=== PATIENT | male | born 1975 | race Caucasian/White ===

== ENCOUNTER → 2017-12-02 14:17 | Outpatient (CLI) | payer OTHER, SELFPAY ==
[2017-12-02 14:40] LABS: Absolute Lymphocyte Count 2.15 X10^3/ul (0.83-4.51); Absolute Neutrophil Count 5.2 X10^3/uL (2.0-7.7); Basophil# 0.03 X10^3/uL; Basophil% 0.4 % (0-1); Eosinophil# 0.11 X10^3/uL; Eosinophils% 1.4 % (0-5); Hematocrit 47.2 % (40-54); Hemoglobin 16.8 g/dl (13.0-16.5); Lymphocyte # 2.15 X10^3/ul (4.0); Lymphocyte % 26.9 % (19-41); Mean Corp Hgb Conc 35.6 g/gl (32-36); Mean Corpuscular Volume 89.9 fL (80-94); Mean Platelet Vol. 10.2 fl (6.2-12.0); Monocyte# 0.45 X10^3/uL; Monocyte% 5.6 % (0-10); Neutrophil # 5.21 X10^3/uL (2.7-7.7); Neutrophil % 65.3 % (47-70); Platelet Count 229 K/mm3 (150-450); RBC Distribution Width CV 13.1 % (11.6-14.6); RBC Distribution Width SD 42.7 fl (35.1-43.9); Red Blood Count 5.25 M/mm3 (4.6-6.2)
[2017-12-02 14:42] LABS: POSITIVE COUNT NO; POSITIVE DIFFERENTIAL NO; POSITIVE MORPHOLOGY NO
[2017-12-02 15:00] VITALS: BP 135/92; PULSE 100; RESP 16; TEMP 36.4; O2SAT 94
[2017-12-02 15:05] LABS: Ferritin 44 ng/mL (26-388)
== END ==
PROVIDERS: Visit Provider Internal Medicine Gastroenterology
DX: E83.119 Hemochromatosis, unspecified (principal)
CPT/HCPCS: 82728; 85025; 99195; A4216

== ENCOUNTER → 2018-01-06 14:19 | Outpatient (CLI) | payer OTHER, SELFPAY ==
[2018-01-06 14:30] VITALS: BP 151/85; PULSE 79; RESP 18; TEMP 36.8; O2SAT 94; BMI 37.5
[2018-01-06 14:49] LABS: Hematocrit 46.3 % (40-54); Hemoglobin 16.2 g/dl (13.0-16.5); Mean Corpuscular Hgb 31.9 pg (27.0-32.0); Mean Corpuscular Volume 91.1 fL (80-94); Mean Platelet Vol. 10.6 fl (6.2-12.0); Platelet Count 236 K/mm3 (150-450); RBC Distribution Width CV 12.9 % (11.6-14.6); RBC Distribution Width SD 42.9 fl (35.1-43.9); Red Blood Count 5.08 M/mm3 (4.6-6.2); Scan Indicated on CBC? Y/N NO; White Blood Count 7.3 K/mm3 (4.4-11.0)
[2018-01-06 15:14] LABS: Ferritin 34 ng/mL (26-388)
== END ==
PROVIDERS: Visit Provider Internal Medicine Gastroenterology
DX: E83.119 Hemochromatosis, unspecified (principal)
CPT/HCPCS: 82728; 85027; 99195; A4216

== ENCOUNTER → 2018-02-03 14:04 | Outpatient (CLI) | payer OTHER, SELFPAY ==
[2018-02-03 14:09] VITALS: BP 137/73; PULSE 112; RESP 14; TEMP 36.8; O2SAT 96; BMI 36.8
[2018-02-03 14:43] LABS: Hematocrit 46.7 % (40-54); Hemoglobin 16.6 g/dl (13.0-16.5); Mean Corp Hgb Conc 35.5 g/gl (32-36); Mean Corpuscular Hgb 31.9 pg (27.0-32.0); Mean Corpuscular Volume 89.8 fL (80-94); Mean Platelet Vol. 10.7 fl (6.2-12.0); Platelet Count 262 K/mm3 (150-450); RBC Distribution Width CV 12.6 % (11.6-14.6); RBC Distribution Width SD 40.9 fl (35.1-43.9)
[2018-02-03 15:30] LABS: Ferritin 35 ng/mL (26-388)
[2018-02-03 15:50] LABS: Scan Indicated on CBC? Y/N NO
== END ==
PROVIDERS: Visit Provider Internal Medicine Gastroenterology
DX: E83.119 Hemochromatosis, unspecified (principal)
CPT/HCPCS: 82728; 85027; 99195

== ENCOUNTER → 2018-03-03 14:00 | Outpatient (CLI) | payer OTHER, SELFPAY ==
[2018-03-03 14:05] VITALS: BP 136/84; PULSE 64; RESP 18; O2SAT 96
[2018-03-03 14:39] VITALS: BP 132/81; PULSE 100; RESP 16
[2018-03-03 14:40] LABS: Absolute Lymphocyte Count 1.96 X10^3/ul (0.83-4.51); Basophil# 0.03 X10^3/uL; Basophil% 0.4 % (0-1); Eosinophil# 0.09 X10^3/uL; Eosinophils% 1.2 % (0-5); Hematocrit 45.8 % (40-54); Hemoglobin 16.1 g/dl (13.0-16.5); Lymphocyte # 1.96 X10^3/ul (4.0); Mean Corp Hgb Conc 35.2 g/gl (32-36); Mean Corpuscular Hgb 31.2 pg (27.0-32.0); Mean Corpuscular Volume 88.8 fL (80-94); Mean Platelet Vol. 10.6 fl (6.2-12.0); Monocyte# 0.44 X10^3/uL; Monocyte% 5.8 % (0-10); Neutrophil # 5.01 X10^3/uL (2.7-7.7); Neutrophil % 66.5 % (47-70); Platelet Count 247 K/mm3 (150-450); RBC Distribution Width CV 12.5 % (11.6-14.6); RBC Distribution Width SD 40.2 fl (35.1-43.9); Red Blood Count 5.16 M/mm3 (4.6-6.2); White Blood Count 7.5 K/mm3 (4.4-11.0)
[2018-03-03 14:43] LABS: POSITIVE COUNT NO; POSITIVE DIFFERENTIAL NO; POSITIVE MORPHOLOGY NO
[2018-03-03 15:12] LABS: Ferritin 14 ng/mL (26-388)
== END ==
PROVIDERS: Visit Provider Internal Medicine Gastroenterology
DX: E83.119 Hemochromatosis, unspecified (principal)
CPT/HCPCS: 82728; 85025; 99195

== ENCOUNTER → 2018-03-31 14:10 | Outpatient (CLI) | payer OTHER, SELFPAY ==
[2018-03-31 14:15] VITALS: BP 143/79; PULSE 108; RESP 16; TEMP 36.7; BMI 36.5
[2018-03-31 14:49] LABS: Hematocrit 45.4 % (40-54); Hemoglobin 15.9 g/dl (13.0-16.5); Mean Corpuscular Hgb 30.6 pg (27.0-32.0); Mean Corpuscular Volume 87.3 fL (80-94); Mean Platelet Vol. 10.6 fl (6.2-12.0); Platelet Count 259 K/mm3 (150-450); RBC Distribution Width CV 12.6 % (11.6-14.6); RBC Distribution Width SD 40.4 fl (35.1-43.9); Scan Indicated on CBC? Y/N NO; White Blood Count 7.7 K/mm3 (4.4-11.0)
[2018-03-31 15:07] LABS: Ferritin 12 ng/mL (26-388)
== END ==
PROVIDERS: Visit Provider Internal Medicine Gastroenterology
DX: E83.119 Hemochromatosis, unspecified (principal)
CPT/HCPCS: 82728; 85027; 99195

== ENCOUNTER → 2018-05-02 14:11 | Outpatient (CLI) | payer OTHER, SELFPAY ==
[2018-05-02 14:42] VITALS: BP 125/75; PULSE 90; RESP 16; TEMP 36.7; BMI 36.5
[2018-05-02 14:49] VITALS: BP 133/90; PULSE 97; RESP 16
[2018-05-02 15:09] LABS: Absolute Lymphocyte Count 2.06 X10^3/ul (0.83-4.51); Absolute Neutrophil Count 4.6 X10^3/uL (2.0-7.7); Basophil# 0.02 X10^3/uL; Basophil% 0.3 % (0-1); Eosinophil# 0.07 X10^3/uL; Hematocrit 43.8 % (40-54); Hemoglobin 14.9 g/dl (13.0-16.5); Lymphocyte # 2.06 X10^3/ul (4.0); Lymphocyte % 28.3 % (19-41); Mean Corpuscular Hgb 29.6 pg (27.0-32.0); Mean Corpuscular Volume 87.1 fL (80-94); Mean Platelet Vol. 10.5 fl (6.2-12.0); Monocyte# 0.49 X10^3/uL; Monocyte% 6.7 % (0-10); Neutrophil # 4.64 X10^3/uL (2.7-7.7); Neutrophil % 63.7 % (47-70); Platelet Count 245 K/mm3 (150-450); RBC Distribution Width SD 41.4 fl (35.1-43.9); Red Blood Count 5.03 M/mm3 (4.6-6.2); White Blood Count 7.3 K/mm3 (4.4-11.0)
[2018-05-02 15:14] LABS: POSITIVE COUNT NO; POSITIVE DIFFERENTIAL NO; POSITIVE MORPHOLOGY NO
[2018-05-02 15:19] LABS: Ferritin 9 ng/mL (26-388)
== END ==
PROVIDERS: Visit Provider Internal Medicine Gastroenterology
DX: E83.119 Hemochromatosis, unspecified (principal)
CPT/HCPCS: 82728; 85025; 99195

== ENCOUNTER → 2018-06-02 14:11 | Outpatient (CLI) | payer OTHER, SELFPAY ==
[2018-06-02 14:16] VITALS: BP 128/85; PULSE 94; RESP 16; TEMP 36.6; O2SAT 98; BMI 36.5
[2018-06-02 14:35] LABS: Hematocrit 42.7 % (40-54); Mean Corp Hgb Conc 35.1 g/gl (32-36); Mean Corpuscular Hgb 29.9 pg (27.0-32.0); Mean Corpuscular Volume 85.2 fL (80-94); Mean Platelet Vol. 10.5 fl (6.2-12.0); Platelet Count 242 K/mm3 (150-450); RBC Distribution Width CV 13.6 % (11.6-14.6); RBC Distribution Width SD 41.9 fl (35.1-43.9); Red Blood Count 5.01 M/mm3 (4.6-6.2); White Blood Count 7.1 K/mm3 (4.4-11.0)
[2018-06-02 14:36] LABS: Scan Indicated on CBC? Y/N NO
[2018-06-02 14:50] LABS: Ferritin 11 ng/mL (26-388)
== END ==
PROVIDERS: Visit Provider Internal Medicine Gastroenterology
DX: E83.119 Hemochromatosis, unspecified (principal)
CPT/HCPCS: 82728; 85027; 99195; A4216

== ENCOUNTER → 2019-01-29 14:46 | Outpatient (CLI) | payer OTHER, SELFPAY ==
[2018-06-02 14:16] VITALS: BMI 36.5
[2019-01-29 15:35] VITALS: BP 146/89; PULSE 102; RESP 16; TEMP 36.5; O2SAT 95
[2019-01-29 15:37] LABS: Hematocrit 46.5 % (40-54); Hemoglobin 16.8 g/dl (13.0-16.5); Mean Corp Hgb Conc 36.1 g/gl (32-36); Mean Corpuscular Hgb 31.7 pg (27.0-32.0); Mean Corpuscular Volume 87.7 fL (80-94); Mean Platelet Vol. 10.8 fl (6.2-12.0); Platelet Count 246 K/mm3 (150-450); RBC Distribution Width CV 12.7 % (11.6-14.6); RBC Distribution Width SD 40.5 fl (35.1-43.9); White Blood Count 7.6 K/mm3 (4.4-11.0)
[2019-01-29 15:43] LABS: Scan Indicated on CBC? Y/N NO
[2019-01-29 15:46] LABS: Ferritin 63 ng/mL (26-388)
[2019-01-29 22:57] LABS: Xtra Tube EP Lab EXTRA TUBE
== END ==
PROVIDERS: Referring Provider Internal Medicine Gastroenterology; Visit Provider Internal Medicine Gastroenterology
DX: E83.119 Hemochromatosis, unspecified (principal)
CPT/HCPCS: 82728; 85027; 99195; A4216

== ENCOUNTER → 2019-02-26 | Outpatient (CLI) | payer OTHER, SELFPAY ==
[2019-02-26 15:12] VITALS: BP 140/95; PULSE 101; RESP 18; TEMP 36.1; O2SAT 100
[2019-02-26 15:34] VITALS: BP 122/79; PULSE 99
[2019-02-26 16:06] LABS: Hematocrit 45.9 % (40-54); Hemoglobin 16.4 g/dl (13.0-16.5); Mean Corp Hgb Conc 35.7 g/gl (32-36); Mean Corpuscular Hgb 32.1 pg (27.0-32.0); Mean Corpuscular Volume 89.8 fL (80-94); Mean Platelet Vol. 10.4 fl (6.2-12.0); Platelet Count 232 K/mm3 (150-450); RBC Distribution Width CV 12.8 % (11.6-14.6); RBC Distribution Width SD 41.8 fl (35.1-43.9); Red Blood Count 5.11 M/mm3 (4.6-6.2); White Blood Count 8.3 K/mm3 (4.4-11.0)
[2019-02-26 16:07] LABS: Scan Indicated on CBC? Y/N NO
[2019-02-26 16:08] LABS: Ferritin 40 ng/mL (26-388)
== END | disposition home or self-care (01) ==
LOC: MEDOUTP 15:07
PROVIDERS: Referring Provider Internal Medicine Gastroenterology; Visit Provider Internal Medicine Gastroenterology
DX: E83.119 Hemochromatosis, unspecified (principal)
CPT/HCPCS: 82728; 85027; 99195

== ENCOUNTER → 2019-03-30 | Outpatient (CLI) | payer OTHER, SELFPAY ==
[2019-03-30 15:20] VITALS: BP 123/84; PULSE 84; RESP 16; TEMP 36.6; O2SAT 94; BMI 37.2
[2019-03-30 15:55] LABS: Hemoglobin 17.3 g/dl (13.0-16.5); Mean Corpuscular Hgb 31.9 pg (27.0-32.0); Mean Corpuscular Volume 88.4 fL (80-94); Mean Platelet Vol. 10.8 fl (6.2-12.0); Platelet Count 257 K/mm3 (150-450); RBC Distribution Width CV 12.7 % (11.6-14.6); RBC Distribution Width SD 41.3 fl (35.1-43.9); Red Blood Count 5.43 M/mm3 (4.6-6.2); White Blood Count 8.3 K/mm3 (4.4-11.0)
[2019-03-30 15:56] LABS: Scan Indicated on CBC? Y/N NO
[2019-03-30 16:14] LABS: Ferritin 32 ng/mL (26-388)
== END | disposition home or self-care (01) ==
LOC: MEDOUTP 14:59
PROVIDERS: Referring Provider Internal Medicine Gastroenterology; Visit Provider Internal Medicine Gastroenterology
DX: E83.119 Hemochromatosis, unspecified (principal)
CPT/HCPCS: 82728; 85027; 99195

== ENCOUNTER → 2019-05-04 14:58 | Outpatient (CLI) | payer OTHER, SELFPAY ==
[2019-03-30 15:20] VITALS: BMI 37.2
[2019-05-04 15:04] VITALS: BP 125/68; PULSE 92; RESP 18; TEMP 36.4; O2SAT 94; BMI 37.2
[2019-05-04 15:18] LABS: Absolute Lymphocyte Count 2.18 X10^3/uL (0.83-4.51); Absolute Neutrophil Count 5.2 X10^3/uL (2.0-7.7); Basophil# 0.06 X10^3/uL; Basophil% 0.7 % (0-1); Eosinophils% 1.2 % (0-5); Hematocrit 45.7 % (40-54); Hemoglobin 16.3 g/dL (13.0-16.5); Lymphocyte # 2.18 X10^3/ul (4.0); Mean Corp Hgb Conc 35.7 g/dL (32-36); Mean Corpuscular Hgb 32.1 pg (27.0-32.0); Mean Platelet Vol. 10.3 fl (6.2-12.0); Monocyte# 0.53 X10^3/uL; Monocyte% 6.6 % (0-10); NRBC Flagged by Analyzer 0 % (0-5); Neutrophil # 5.18 X10^3/uL (2.7-7.7); Neutrophil % 64.1 % (47-70); Platelet Count 263 K/mm3 (150-450); RBC Distribution Width SD 39.8 fl (35.1-43.9); Red Blood Count 5.08 M/mm3 (4.6-6.2); White Blood Count 8.1 K/mm3 (4.4-11.0)
[2019-05-04 15:38] LABS: Ferritin 24 ng/mL (26-388)
== END ==
PROVIDERS: Referring Provider Internal Medicine Gastroenterology; Visit Provider Internal Medicine Gastroenterology
DX: E83.119 Hemochromatosis, unspecified (principal)
CPT/HCPCS: 82728; 85025; 99195; A4216

== ENCOUNTER → 2020-07-02 16:47 | Outpatient (CLI) | payer OTHER, SELFPAY ==
[2019-05-04 15:04] VITALS: BMI 37.2
[2020-07-02 18:08] LABS: Hematocrit 47.8 % (40-54); Hemoglobin 16.8 g/dL (13.0-16.5); Mean Corp Hgb Conc 35.1 g/dL (32-36); Mean Corpuscular Hgb 32.3 pg (27.0-32.0); Mean Corpuscular Volume 91.9 fL (80-94); Mean Platelet Vol. 10.6 fl (6.2-12.0); Platelet Count 263 K/mm3 (150-450); RBC Distribution Width CV 12.3 % (11.6-14.6); RBC Distribution Width SD 41.7 fl (35.1-43.9); White Blood Count 8.1 K/mm3 (4.4-11.0)
[2020-07-02 18:51] LABS: ALB/GLOB Ratio 1.2 RATIO (0.9-2.4); AST(SGOT) 55 U/L (15-37); Alanine Aminotransfer ALT/SGPT 87 U/L (16-61); Albumin, Serum 4.2 g/dL (3.2-5.0); Alkaline Phosphatase 61 U/L (45-117); Anion Gap 8 (5-15); BUN 18 mg/dL (7-18); BUN/Creat Ratio 16.2 RATIO (10-20); Calcium,Total 9.3 mg/dL (8.5-10.1); Chloride 107 mmol/L (98-107); Creatinine, Serum 1.11 mg/dL (0.70-1.30); EST Glomerular Filtration Rate 77 mL/min (>60); Est Glom Filt Rate - Afr Amer 93 mL/min (>60); Ferritin 333 ng/mL (26-388); Globulin 3.4 g/dL (2.2-4.2); Glucose 109 mg/dL (74-106); Iron 131 ug/dL (65-175); Iron Binding Capacity,Total 242 ug/dL (250-450); PERCENT IRON SATURATION 54.1 % (15.0-55.0); Protein, Total 7.6 g/dL (6.4-8.2); Sodium Level 141 mmol/L (136-145)
== END ==
PROVIDERS: Referring Provider Internal Medicine Gastroenterology; Visit Provider Internal Medicine Gastroenterology
DX: K75.9 Inflammatory liver disease, unspecified (principal)
CPT/HCPCS: 36415; 80053; 82728; 83540; 83550; 85027

== ENCOUNTER → 2020-08-08 14:25 | Outpatient (CLI) | payer OTHER, SELFPAY ==
[2019-05-04 15:04] VITALS: BMI 37.2
[2020-08-08 14:30] VITALS: BP 139/86; PULSE 97; RESP 18; TEMP 36.3; O2SAT 95; BMI 37.2
[2020-08-08 14:59] VITALS: BP 134/84; PULSE 99; RESP 18; TEMP 36.2; O2SAT 96
== END ==
PROVIDERS: Referring Provider Internal Medicine Gastroenterology; Visit Provider Internal Medicine Gastroenterology
DX: E83.119 Hemochromatosis, unspecified (principal)
CPT/HCPCS: 99195; A4216

== ENCOUNTER → 2020-08-22 14:36 | Outpatient (CLI) | payer OTHER, SELFPAY ==
[2019-05-04 15:04] VITALS: BMI 37.2
[2020-08-08 14:30] VITALS: BMI 37.2
[2020-08-22 14:30] VITALS: BP 133/90; PULSE 100; RESP 16; TEMP 37.2; O2SAT 95; BMI 37.2
[2020-08-22 15:00] VITALS: BP 133/90; PULSE 100; RESP 16; TEMP 37.2; O2SAT 95
== END ==
PROVIDERS: Referring Provider Internal Medicine Gastroenterology; Visit Provider Internal Medicine Gastroenterology
DX: E83.119 Hemochromatosis, unspecified (principal)
CPT/HCPCS: 99195

== ENCOUNTER → 2020-09-16 15:33 | Outpatient (CLI) | payer OTHER, SELFPAY ==
[2020-08-08 14:30] VITALS: BMI 37.2
[2020-08-22 14:30] VITALS: BMI 37.2
[2020-09-16 16:36] VITALS: BP 122/81; PULSE 98; RESP 18; TEMP 35.9; O2SAT 95; BMI 37.2
[2020-09-16 16:38] VITALS: BP 122/81
== END ==
PROVIDERS: Referring Provider Internal Medicine Gastroenterology; Visit Provider Internal Medicine Gastroenterology
DX: E83.119 Hemochromatosis, unspecified (principal)
CPT/HCPCS: 99195

== ENCOUNTER → 2020-11-07 14:38 | Outpatient (CLI) | payer OTHER, SELFPAY ==
[2020-09-16 16:36] VITALS: BMI 37.2
[2020-11-07 14:50] VITALS: BP 133/91; PULSE 109; RESP 16; TEMP 36.1; O2SAT 95; BMI 38.0
== END ==
PROVIDERS: Referring Provider Internal Medicine Gastroenterology; Visit Provider Internal Medicine Gastroenterology
DX: E83.119 Hemochromatosis, unspecified (principal)
CPT/HCPCS: 99195

== ENCOUNTER 2020-12-19 14:57 | Outpatient (CLI) | payer OTHER, SELFPAY ==
[2020-11-07 14:50] VITALS: BMI 38.0
[2020-12-19 15:03] VITALS: BP 149/89; PULSE 105; RESP 16; TEMP 36.2; O2SAT 94; BMI 37.2
[2020-12-19 15:21] VITALS: BP 131/89; PULSE 108; RESP 16; TEMP 36.3; O2SAT 94
== END 2020-12-19 18:00 | disposition home or self-care (01) ==
LOC: MEDOUTP 14:58
PROVIDERS: Referring Provider Internal Medicine Gastroenterology; Visit Provider Internal Medicine Gastroenterology
DX: E83.119 Hemochromatosis, unspecified (principal)
CPT/HCPCS: 99195

== ENCOUNTER 2020-12-29 16:44 | Outpatient (RCR) | payer OTHER, SELFPAY ==
[2020-12-29 17:43] LABS: Hematocrit 45.4 % (40-54); Hemoglobin 16.4 g/dL (13.0-16.5); Mean Corp Hgb Conc 36.1 g/dL (32-36); Mean Corpuscular Hgb 32.9 pg (27.0-32.0); Mean Platelet Vol. 10.5 fl (6.2-12.0); Platelet Count 279 K/mm3 (150-450); RBC Distribution Width CV 12.9 % (11.6-14.6); Red Blood Count 4.99 M/mm3 (4.6-6.2)
[2020-12-29 18:06] LABS: Ferritin 80 ng/mL (26-388); Iron 200 ug/dL (65-175)
== END 2020-12-29 18:00 | disposition home or self-care (01) ==
LOC: MTLAB 16:44
PROVIDERS: Referring Provider Internal Medicine Gastroenterology; Visit Provider Internal Medicine Gastroenterology
DX: E83.119 Hemochromatosis, unspecified (principal)
CPT/HCPCS: 36415; 82728; 83540; 85027

== ENCOUNTER → 2021-01-16 07:40 | Outpatient (CLI) | payer OTHER, SELFPAY ==
[2020-11-07 14:50] VITALS: BMI 38.0
[2020-12-19 15:03] VITALS: BMI 37.2
--- NOTE | 2021-01-16 07:48 | US_ITS ---
STUDY: ABDOMINAL ULTRASOUND - RIGHT UPPER QUADRANT REASON FOR VISIT: Male, 45 years old FATTY LIVER -- hemochromatosis TECHNIQUE: Ultrasound evaluation of the right upper quadrant was performed with real-time and static curtis-scale imaging. TECHNICAL QUALITY: Adequate. COMPARISON: None. FINDINGS: Liver: The liver measures 17.6 cm. There is increased echogenicity consistent with fatty infiltration. The bile ducts are within normal limits. There is hepatic color flow. The direction of portal flow is hepatopetal. There is no demonstrated mass lesion. Gallbladder: Normal distended gallbladder. The gallbladder wall measures 2.6 mm. There is a negative sonographic Aldridge''s sign. There is no pericholecystic fluid. There are no gallstones. Common Bile Duct (C.B.D.): The common bile duct measures 3.8 mm. Pancreas: Normal size of the head, body and tail of the pancreas. There is increased echogenicity of the pancreas. There is no demonstrated pancreatic mass or cyst. Right Kidney: Normal size of the right kidney. The right kidney measures 11.6 cm x 7 cm x 6.9 cm. Normal renal cortex. The right cortex measures 2.7 cm. There is no demonstrated renal mass or cyst. There is no right hydronephrosis. IMPRESSION: Increased hepatic echotexture suggestive of fatty infiltration of the liver. Electronically Signed: Pako Fox MD at 13:01 EDT , Service support , STUDY: ABDOMINAL ULTRASOUND - ELASTOGRAPHY REASON FOR VISIT: Male, 45 years old. Hemochromatosis. Fatty infiltration of the liver. TECHNIQUE: Liver stiffness measurements were obtained on a [employer] 85 ultrasound machine using a CA 1-7 probe following the SRU guidelines. 3 measurements were obtained using a 2-D-SWE method. The IQR/M was 17% suggesting a quality data set. TECHNICAL QUALITY: Adequate. COMPARISON: None. FINDINGS: Liver: Fatty infiltration of the liver. Median liver stiffness measured 7.9 kPa. US/Abdomen Limited IMPRESSION: Liver stiffness measures 7.9 kPa compatible with F2 -- F 3 Metavir score. Electronically Signed: Pako Fox MD at 13:03 EDT , Service support ,
[2021-01-16 09:16] VITALS: BP 136/93; PULSE 78; RESP 16; TEMP 35.7; O2SAT 97; BMI 38.0
== END ==
PROVIDERS: Referring Provider Internal Medicine Gastroenterology; Visit Provider Internal Medicine Gastroenterology
DX: K76.0 Fatty (change of) liver, not elsewhere classified (principal); E83.119 Hemochromatosis, unspecified
CPT/HCPCS: 76705; 76981; 99195

== ENCOUNTER → 2021-02-20 14:39 | Outpatient (CLI) | payer OTHER, SELFPAY ==
[2021-01-16 09:16] VITALS: BMI 38.0
[2021-02-20 14:52] VITALS: BP 128/79; PULSE 101; RESP 16; TEMP 35.9; O2SAT 93; BMI 36.5
[2021-02-20 15:19] VITALS: BP 124/71; PULSE 104; RESP 16; TEMP 35.7; O2SAT 94
== END ==
PROVIDERS: PCP Family Medicine; Referring Provider Internal Medicine Gastroenterology; Visit Provider Internal Medicine Gastroenterology
DX: E83.119 Hemochromatosis, unspecified (principal)
CPT/HCPCS: 99195

== ENCOUNTER → 2021-03-20 14:45 | Outpatient (CLI) | payer OTHER, SELFPAY ==
[2021-01-16 09:16] VITALS: BMI 38.0
[2021-02-20 14:52] VITALS: BMI 36.5
[2021-03-20 14:56] VITALS: BP 137/81; PULSE 113; RESP 16; TEMP 36.1; O2SAT 95; BMI 37.2
[2021-03-20 15:05] VITALS: BP 142/80; PULSE 117; RESP 16; TEMP 36.5; O2SAT 95
== END ==
PROVIDERS: PCP Family Medicine; Referring Provider Internal Medicine Gastroenterology; Visit Provider Internal Medicine Gastroenterology
DX: E83.119 Hemochromatosis, unspecified (principal)
CPT/HCPCS: 99195

== ENCOUNTER → 2021-04-28 15:02 | Outpatient (CLI) | payer OTHER, SELFPAY ==
[2021-02-20 14:52] VITALS: BMI 36.5
[2021-03-20 14:56] VITALS: BMI 37.2
[2021-04-28 15:08] VITALS: BP 131/76; PULSE 101; RESP 16; TEMP 36.3; O2SAT 94; BMI 36.5
[2021-04-28 15:36] VITALS: BP 132/83; PULSE 105; RESP 16; TEMP 36.5
== END ==
PROVIDERS: PCP Family Medicine; Referring Provider Internal Medicine Gastroenterology; Visit Provider Internal Medicine Gastroenterology
DX: E83.119 Hemochromatosis, unspecified (principal)
CPT/HCPCS: 99195

== ENCOUNTER → 2021-06-05 14:43 | Outpatient (CLI) | payer OTHER, SELFPAY ==
[2021-03-20 14:56] VITALS: BMI 37.2
[2021-06-05 14:57] VITALS: BP 133/80; PULSE 99; RESP 16; TEMP 36.6; O2SAT 99
== END ==
PROVIDERS: PCP Family Medicine; Referring Provider Internal Medicine Gastroenterology; Visit Provider Internal Medicine Gastroenterology
DX: E83.119 Hemochromatosis, unspecified (principal)
CPT/HCPCS: 99195; A4216

== ENCOUNTER 2021-12-16 16:17 | Outpatient (CLI) | payer OTHER, SELFPAY ==
[2021-12-16 17:45] LABS: Hematocrit 46.8 % (40-54); Hemoglobin 17.5 g/dL (13.0-16.5); Mean Corp Hgb Conc 37.4 g/dL (32-36); Mean Corpuscular Hgb 33.7 pg (27.0-32.0); Mean Corpuscular Volume 90.2 fL (80-94); Mean Platelet Vol. 10.7 fl (6.2-12.0); Platelet Count 296 K/mm3 (150-450); RBC Distribution Width CV 12.4 % (11.6-14.6); RBC Distribution Width SD 40.8 fl (35.1-43.9); Red Blood Count 5.19 M/mm3 (4.6-6.2); White Blood Count 8.4 K/mm3 (4.4-11.0)
[2021-12-16 18:07] LABS: Ferritin 94 ng/mL (26-388); Iron 201 ug/dL (65-175)
[2021-12-18 15:16] LABS: AFP, Tumor Marker 1.7 ng/mL (0.0-8.3)
== END 2021-12-16 23:59 | disposition home or self-care (01) ==
PROVIDERS: PCP Family Medicine; Referring Provider Internal Medicine Gastroenterology; Visit Provider Internal Medicine Gastroenterology
DX: E83.119 Hemochromatosis, unspecified (principal)
CPT/HCPCS: 36415; 82105; 82728; 83540; 85027

== ENCOUNTER 2021-12-24 15:35 | Outpatient (CLI) | payer OTHER, SELFPAY ==
[2021-12-24 15:55] VITALS: BP 116/85; PULSE 101; RESP 16; TEMP 36.2; O2SAT 94; BMI 36.5
[2021-12-24 16:06] LABS: Absolute Lymphocyte Count 2.08 X10^3/uL (0.83-4.51); Absolute Neutrophil Count 5.1 X10^3/uL (2.0-7.7); Basophil# 0.05 X10^3/uL; Basophil% 0.6 % (0-1); Eosinophil# 0.06 X10^3/uL; Eosinophils% 0.8 % (0-5); Hematocrit 47.7 % (40-54); Lymphocyte # 2.08 X10^3/ul (0.83-4.51); Lymphocyte % 26.6 % (19-41); Mean Corp Hgb Conc 35.6 g/dL (32-36); Mean Corpuscular Hgb 31.9 pg (27.0-32.0); Mean Corpuscular Volume 89.5 fL (80-94); Mean Platelet Vol. 9.9 fl (6.2-12.0); Monocyte# 0.47 X10^3/uL; NRBC Flagged by Analyzer 0 % (0-5); Neutrophil # 5.11 X10^3/uL (2.7-7.7); Neutrophil % 65.5 % (47-70); Platelet Count 260 K/mm3 (150-450); RBC Distribution Width CV 12.4 % (11.6-14.6); RBC Distribution Width SD 40.6 fl (35.1-43.9); Red Blood Count 5.33 M/mm3 (4.6-6.2); White Blood Count 7.8 K/mm3 (4.4-11.0)
[2021-12-24 16:21] LABS: Ferritin 106 ng/mL (26-388); Iron 166 ug/dL (65-175)
== END 2021-12-24 23:59 | disposition home or self-care (01) ==
LOC: MEDOUTP 15:36
PROVIDERS: PCP Family Medicine; Referring Provider Internal Medicine Gastroenterology; Visit Provider Internal Medicine Gastroenterology
DX: E83.119 Hemochromatosis, unspecified (principal)
CPT/HCPCS: 82728; 83540; 85025; 99195

== ENCOUNTER 2022-01-07 15:26 | Outpatient (CLI) | payer OTHER, SELFPAY ==
[2022-01-07 15:45] VITALS: BP 134/83; PULSE 98; RESP 16; TEMP 36; O2SAT 96; BMI 36.5
[2022-01-07 15:52] VITALS: BP 146/95; PULSE 99; RESP 16; TEMP 36.2; O2SAT 98
[2022-01-07 15:58] LABS: Hematocrit 46.1 % (40-54); Hemoglobin 16.8 g/dL (13.0-16.5); Mean Corp Hgb Conc 36.4 g/dL (32-36); Mean Corpuscular Hgb 33.1 pg (27.0-32.0); Mean Corpuscular Volume 90.7 fL (80-94); Mean Platelet Vol. 9.9 fl (6.2-12.0); Platelet Count 261 K/mm3 (150-450); RBC Distribution Width CV 12.8 % (11.6-14.6); Red Blood Count 5.08 M/mm3 (4.6-6.2); White Blood Count 7.9 K/mm3 (4.4-11.0)
[2022-01-07 16:16] LABS: Ferritin 72 ng/mL (26-388); Iron 138 ug/dL (65-175)
== END 2022-01-07 23:59 | disposition home or self-care (01) ==
LOC: MEDOUTP 15:26
PROVIDERS: PCP Family Medicine; Referring Provider Internal Medicine Gastroenterology; Visit Provider Internal Medicine Gastroenterology
DX: E83.119 Hemochromatosis, unspecified (principal)
CPT/HCPCS: 82728; 83540; 85027; 99195

== ENCOUNTER 2022-01-21 15:29 | Outpatient (CLI) | payer OTHER, SELFPAY ==
[2022-01-21 15:41] VITALS: BP 141/88; PULSE 94; RESP 16; TEMP 36.3; O2SAT 94; BMI 37.2
[2022-01-21 15:55] LABS: Hemoglobin 16.8 g/dL (13.0-16.5); Mean Corp Hgb Conc 35.7 g/dL (32-36); Mean Corpuscular Hgb 32.4 pg (27.0-32.0); Mean Corpuscular Volume 90.6 fL (80-94); Mean Platelet Vol. 10.1 fl (6.2-12.0); Platelet Count 247 K/mm3 (150-450); RBC Distribution Width CV 12.7 % (11.6-14.6); RBC Distribution Width SD 41.6 fl (35.1-43.9); Red Blood Count 5.19 M/mm3 (4.6-6.2); White Blood Count 8.9 K/mm3 (4.4-11.0)
[2022-01-21 16:00] VITALS: BP 138/79; PULSE 94; RESP 12; TEMP 36.6; O2SAT 94
[2022-01-21 16:21] LABS: Ferritin 49 ng/mL (26-388); Iron 108 ug/dL (65-175)
== END 2022-01-21 23:59 | disposition home or self-care (01) ==
LOC: MEDOUTP 15:29
PROVIDERS: PCP Family Medicine; Referring Provider Internal Medicine Gastroenterology; Visit Provider Internal Medicine Gastroenterology
DX: E83.119 Hemochromatosis, unspecified (principal)
CPT/HCPCS: 82728; 83540; 85027; 99195

== ENCOUNTER → 2022-02-10 | Outpatient (CLI) | payer OTHER, SELFPAY ==
[2022-02-10 15:45] VITALS: BP 153/88; PULSE 92; RESP 12; O2SAT 96; BMI 37.2
[2022-02-10 15:54] VITALS: BP 166/90; PULSE 96; RESP 12; O2SAT 96
== END | disposition home or self-care (01) ==
LOC: MEDOUTP 15:24
PROVIDERS: PCP Family Medicine; Referring Provider Internal Medicine Gastroenterology; Visit Provider Internal Medicine Gastroenterology
DX: E83.119 Hemochromatosis, unspecified (principal)
CPT/HCPCS: 99195

== ENCOUNTER → 2022-03-03 | Outpatient (CLI) | payer OTHER, SELFPAY ==
[2022-03-03 15:29] VITALS: BP 153/79; PULSE 84; RESP 12; TEMP 35.9; O2SAT 97; BMI 36.5
[2022-03-03 15:37] VITALS: BP 153/79; PULSE 84; RESP 12; TEMP 35.9; O2SAT 97
[2022-03-03 15:38] VITALS: BP 136/78; PULSE 61; RESP 12; TEMP 35.9; O2SAT 97
[2022-03-03 15:48] LABS: Hematocrit 46.3 % (40-54); Hemoglobin 16.1 g/dL (13.0-16.5); Mean Corp Hgb Conc 34.8 g/dL (32-36); Mean Corpuscular Hgb 31.8 pg (27.0-32.0); Mean Corpuscular Volume 91.5 fL (80-94); Mean Platelet Vol. 10.3 fl (6.2-12.0); Platelet Count 282 K/mm3 (150-450); Red Blood Count 5.06 M/mm3 (4.6-6.2); White Blood Count 7.7 K/mm3 (4.4-11.0)
[2022-03-03 16:21] LABS: Ferritin 15 ng/mL (26-388); Iron 38 ug/dL (65-175)
== END | disposition home or self-care (01) ==
LOC: MEDOUTP 15:11
PROVIDERS: PCP Family Medicine; Referring Provider Internal Medicine Gastroenterology; Visit Provider Internal Medicine Gastroenterology
DX: E83.119 Hemochromatosis, unspecified (principal)
CPT/HCPCS: 82728; 83540; 85027; 99195

== ENCOUNTER → 2022-04-14 | Outpatient (CLI) | payer OTHER, SELFPAY ==
[2022-04-14 15:28] VITALS: BP 134/82; PULSE 90; RESP 16; TEMP 36.3; O2SAT 95
[2022-04-14 15:51] LABS: Hematocrit 47.4 % (40-54); Hemoglobin 16.4 g/dL (13.0-16.5); Mean Corp Hgb Conc 34.6 g/dL (32-36); Mean Corpuscular Hgb 30.3 pg (27.0-32.0); Mean Corpuscular Volume 87.5 fL (80-94); Mean Platelet Vol. 10.5 fl (6.2-12.0); Platelet Count 300 K/mm3 (150-450); RBC Distribution Width CV 12.3 % (11.6-14.6); RBC Distribution Width SD 39.3 fl (35.1-43.9); Red Blood Count 5.42 M/mm3 (4.6-6.2); White Blood Count 8.2 K/mm3 (4.4-11.0)
[2022-04-14 16:13] LABS: Ferritin 23 ng/mL (26-388); Iron 196 ug/dL (65-175)
== END | disposition home or self-care (01) ==
LOC: MEDOUTP 15:23
PROVIDERS: PCP Family Medicine; Referring Provider Internal Medicine Gastroenterology; Visit Provider Internal Medicine Gastroenterology
DX: E83.119 Hemochromatosis, unspecified (principal)
CPT/HCPCS: 82728; 83540; 85027; 99195

== ENCOUNTER 2022-05-12 14:29 | Outpatient (CLI) | payer OTHER, SELFPAY ==
[2022-05-12 14:41] VITALS: BP 132/90; PULSE 100; RESP 16; TEMP 36; O2SAT 96; BMI 36.5
== END 2022-05-12 23:59 | disposition home or self-care (01) ==
LOC: MEDOUTP 14:29
PROVIDERS: PCP Family Medicine; Referring Provider Internal Medicine Gastroenterology; Visit Provider Internal Medicine Gastroenterology
DX: E83.119 Hemochromatosis, unspecified (principal)
CPT/HCPCS: 99195

== ENCOUNTER → 2022-06-15 | Outpatient (CLI) | payer OTHER, SELFPAY ==
[2022-06-15 15:30] VITALS: BP 145/98; PULSE 89; RESP 16; TEMP 36.7; O2SAT 96; BMI 34.7
[2022-06-15 15:54] LABS: Hematocrit 46.4 % (40-54); Mean Corp Hgb Conc 34.5 g/dL (32-36); Mean Corpuscular Hgb 29.4 pg (27.0-32.0); Mean Corpuscular Volume 85.1 fL (80-94); Mean Platelet Vol. 10.5 fl (6.2-12.0); Platelet Count 312 K/mm3 (150-450); RBC Distribution Width CV 13.8 % (11.6-14.6); RBC Distribution Width SD 42.5 fl (35.1-43.9); Red Blood Count 5.45 M/mm3 (4.6-6.2)
[2022-06-15 16:15] LABS: Ferritin 23 ng/mL (26-388); Iron 82 ug/dL (65-175)
== END | disposition home or self-care (01) ==
LOC: MEDOUTP 15:17
PROVIDERS: PCP Family Medicine; Referring Provider Internal Medicine Gastroenterology; Visit Provider Internal Medicine Gastroenterology
DX: E83.119 Hemochromatosis, unspecified (principal)
CPT/HCPCS: 82728; 83540; 85027; 99195

== ENCOUNTER → 2022-07-16 | Outpatient (CLI) | payer OTHER, SELFPAY ==
[2022-07-16 15:25] VITALS: BP 116/73; PULSE 66; RESP 16; TEMP 36.2; O2SAT 94
[2022-07-16 15:53] LABS: Hematocrit 41.9 % (40-54); Hemoglobin 13.9 g/dL (13.0-16.5); Mean Corp Hgb Conc 33.2 g/dL (32-36); Mean Corpuscular Hgb 28.4 pg (27.0-32.0); Mean Corpuscular Volume 85.7 fL (80-94); Mean Platelet Vol. 10.3 fl (6.2-12.0); Platelet Count 305 K/mm3 (150-450); RBC Distribution Width CV 13.2 % (11.6-14.6); RBC Distribution Width SD 41.3 fl (35.1-43.9); Red Blood Count 4.89 M/mm3 (4.6-6.2); White Blood Count 7.7 K/mm3 (4.4-11.0)
[2022-07-16 16:21] LABS: Ferritin 9 ng/mL (26-388); Iron 49 ug/dL (65-175)
== END | disposition home or self-care (01) ==
LOC: MEDOUTP 15:08
PROVIDERS: PCP Family Medicine; Referring Provider Internal Medicine Gastroenterology; Visit Provider Internal Medicine Gastroenterology
DX: E83.119 Hemochromatosis, unspecified (principal)
CPT/HCPCS: 82728; 83540; 85027; 99195

== ENCOUNTER → 2022-08-16 | Outpatient (CLI) | payer OTHER, SELFPAY ==
[2022-08-16 15:17] VITALS: BP 116/96; PULSE 63; RESP 16; TEMP 36.2; O2SAT 97; BMI 31.9
[2022-08-16 15:32] VITALS: BP 125/77; PULSE 80; RESP 14; TEMP 36.4; O2SAT 97
== END | disposition home or self-care (01) ==
LOC: MEDOUTP 15:02
PROVIDERS: PCP Family Medicine; Referring Provider Internal Medicine Gastroenterology; Visit Provider Internal Medicine Gastroenterology
DX: E83.119 Hemochromatosis, unspecified (principal)
CPT/HCPCS: 99195

== ENCOUNTER → 2022-09-29 | Outpatient (CLI) | payer OTHER, SELFPAY ==
[2022-09-29 15:30] VITALS: BP 127/79; PULSE 73; RESP 16; TEMP 36.4; O2SAT 98; BMI 31.4
[2022-09-29 15:38] LABS: Hematocrit 42.3 % (40-54); Mean Corp Hgb Conc 33.1 g/dL (32-36); Mean Corpuscular Hgb 26.9 pg (27.0-32.0); Mean Corpuscular Volume 81.2 fL (80-94); Mean Platelet Vol. 9.9 fl (6.2-12.0); Platelet Count 297 K/mm3 (150-450); RBC Distribution Width CV 14.8 % (11.6-14.6); RBC Distribution Width SD 43.4 fl (35.1-43.9); Red Blood Count 5.21 M/mm3 (4.6-6.2); White Blood Count 8.5 K/mm3 (4.4-11.0)
[2022-09-29 15:39] VITALS: BP 103/60; PULSE 87; RESP 16; TEMP 36.6; O2SAT 99
[2022-09-29 16:01] LABS: Ferritin 7 ng/mL (26-388); Iron 71 ug/dL (65-175); Iron Binding Capacity,Total 328 ug/dL (250-450); PERCENT IRON SATURATION 21.6 % (15.0-55.0)
== END | disposition home or self-care (01) ==
LOC: MEDOUTP 15:10
PROVIDERS: PCP Family Medicine; Referring Provider Internal Medicine Gastroenterology; Visit Provider Internal Medicine Gastroenterology
DX: E83.119 Hemochromatosis, unspecified (principal)
CPT/HCPCS: 82728; 83540; 83550; 85027; 99195

== ENCOUNTER → 2022-11-25 | Outpatient (CLI) | payer OTHER, SELFPAY ==
[2022-11-25 15:31] VITALS: BP 123/86; PULSE 74; RESP 16; TEMP 35.8; O2SAT 98; BMI 31.9
[2022-11-25 15:41] VITALS: BP 149/85; PULSE 86; RESP 16; O2SAT 98
== END | disposition home or self-care (01) ==
PROVIDERS: PCP Family Medicine; Referring Provider Internal Medicine Gastroenterology; Visit Provider Internal Medicine Gastroenterology
DX: E83.119 Hemochromatosis, unspecified (principal)
CPT/HCPCS: 99195

== ENCOUNTER → 2023-01-06 | Outpatient (CLI) | payer OTHER, SELFPAY ==
[2023-01-06 15:30] VITALS: BP 134/81; PULSE 77; RESP 16; TEMP 36.6
[2023-01-06 15:52] LABS: Absolute Lymphocyte Count 1.94 X10^3/uL (0.83-4.51); Absolute Neutrophil Count 2.7 X10^3/uL (2.0-7.7); Basophil# 0.03 X10^3/uL; Basophil% 0.6 % (0-1); Eosinophil# 0.09 X10^3/uL; Eosinophils% 1.8 % (0-5); Hematocrit 42.5 % (40-54); Hemoglobin 14.1 g/dL (13.0-16.5); Lymphocyte # 1.94 X10^3/ul (0.83-4.51); Lymphocyte % 37.8 % (19-41); Mean Corp Hgb Conc 33.2 g/dL (32-36); Mean Corpuscular Hgb 27.3 pg (27.0-32.0); Mean Corpuscular Volume 82.2 fL (80-94); Mean Platelet Vol. 10.1 fl (6.2-12.0); Monocyte# 0.34 X10^3/uL; Monocyte% 6.6 % (0-10); NRBC Flagged by Analyzer 0 % (0-5); Neutrophil # 2.71 X10^3/uL (2.7-7.7); Neutrophil % 52.8 % (47-70); Platelet Count 293 K/mm3 (150-450); RBC Distribution Width CV 14.5 % (11.6-14.6); RBC Distribution Width SD 43.7 fl (35.1-43.9); Red Blood Count 5.17 M/mm3 (4.6-6.2); White Blood Count 5.1 K/mm3 (4.4-11.0)
[2023-01-06 16:23] LABS: Ferritin 37 ng/mL (26-388); Iron 104 ug/dL (65-175)
== END | disposition home or self-care (01) ==
PROVIDERS: PCP Family Medicine; Referring Provider Internal Medicine Gastroenterology; Visit Provider Internal Medicine Gastroenterology
DX: E83.119 Hemochromatosis, unspecified (principal)
CPT/HCPCS: 82728; 83540; 85025; 99195

== ENCOUNTER 2023-03-24 14:59 | Outpatient (CLI) | payer OTHER, SELFPAY ==
[2023-03-24 15:17] VITALS: BP 117/86; PULSE 74; RESP 14; TEMP 36; O2SAT 93; BMI 33.4
[2023-03-24 15:23] VITALS: BP 119/86; PULSE 70; RESP 16; TEMP 36.4; O2SAT 95
[2023-03-24 15:42] LABS: Hematocrit 45.2 % (40-54); Hemoglobin 15.2 g/dL (13.0-16.5); Mean Corp Hgb Conc 33.6 g/dL (32-36); Mean Corpuscular Hgb 27.9 pg (27.0-32.0); Mean Corpuscular Volume 83.1 fL (80-94); Mean Platelet Vol. 10.1 fl (6.2-12.0); Platelet Count 253 K/mm3 (150-450); RBC Distribution Width CV 15.2 % (11.6-14.6); RBC Distribution Width SD 45.4 fl (35.1-43.9); Red Blood Count 5.44 M/mm3 (4.6-6.2); White Blood Count 6.3 K/mm3 (4.4-11.0)
[2023-03-24 15:59] LABS: Ferritin 21 ng/mL (26-388); Iron 41 ug/dL (65-175)
== END 2023-03-24 15:00 | disposition home or self-care (01) ==
LOC: MEDOUTP 14:59
PROVIDERS: PCP Family Medicine; Referring Provider Internal Medicine Gastroenterology; Visit Provider Internal Medicine Gastroenterology
DX: E83.119 Hemochromatosis, unspecified (principal)
CPT/HCPCS: 82728; 83540; 85027; 99195

== ENCOUNTER 2023-05-18 14:56 | Outpatient (CLI) | payer OTHER, SELFPAY ==
[2023-05-18 15:08] VITALS: BP 130/90; PULSE 103; RESP 16; TEMP 36.3; O2SAT 94; BMI 34.2
[2023-05-18 15:15] VITALS: BP 140/79; PULSE 111; RESP 16; TEMP 36.6; O2SAT 95
== END 2023-05-18 14:57 | disposition home or self-care (01) ==
LOC: MEDOUTP 14:57
PROVIDERS: PCP Family Medicine; Referring Provider Internal Medicine Gastroenterology; Visit Provider Internal Medicine Gastroenterology
DX: E83.119 Hemochromatosis, unspecified (principal)
CPT/HCPCS: 99195

== ENCOUNTER 2023-07-20 15:00 | Outpatient (CLI) | payer OTHER, SELFPAY ==
[2023-07-20 15:09] VITALS: BP 131/75; PULSE 86; RESP 16; TEMP 36.2
[2023-07-20 15:21] VITALS: BP 117/70; PULSE 90; RESP 16
== END 2023-07-20 15:01 | disposition home or self-care (01) ==
LOC: MEDOUTP 15:00
PROVIDERS: PCP Family Medicine; Referring Provider Internal Medicine Gastroenterology; Visit Provider Internal Medicine Gastroenterology
DX: E83.119 Hemochromatosis, unspecified (principal)
CPT/HCPCS: 99195

== ENCOUNTER 2023-09-07 09:48 | Outpatient (CLI) | payer OTHER, SELFPAY ==
[2023-09-07 09:59] VITALS: BP 129/88; PULSE 76; RESP 16; TEMP 36.1
[2023-09-07 10:10] LABS: Hematocrit 47.7 % (40-54); Hemoglobin 16.5 g/dL (13.0-16.5); Mean Corp Hgb Conc 34.6 g/dL (32-36); Mean Corpuscular Hgb 29.8 pg (27.0-32.0); Mean Corpuscular Volume 86.1 fL (80-94); Mean Platelet Vol. 10.1 fl (6.2-12.0); Platelet Count 246 K/mm3 (150-450); RBC Distribution Width CV 13.3 % (11.6-14.6); RBC Distribution Width SD 41.5 fl (35.1-43.9); Red Blood Count 5.54 M/mm3 (4.6-6.2); White Blood Count 6.2 K/mm3 (4.4-11.0)
[2023-09-07 10:29] LABS: Ferritin 20 ng/mL (26-388); Iron 129 ug/dL (65-175)
== END 2023-09-07 09:49 | disposition home or self-care (01) ==
PROVIDERS: PCP Family Medicine; Referring Provider Internal Medicine Gastroenterology; Visit Provider Internal Medicine Gastroenterology
DX: E83.119 Hemochromatosis, unspecified (principal)
CPT/HCPCS: 82728; 83540; 85027; 99195

== ENCOUNTER 2023-11-21 14:07 | Outpatient (CLI) | payer OTHER, SELFPAY ==
[2023-11-21 14:32] VITALS: BP 120/85; PULSE 98; RESP 16; TEMP 36.1; O2SAT 95
[2023-11-21 15:20] LABS: Ferritin 21 ng/mL (26-388); Iron 141 ug/dL (65-175)
[2023-11-21 15:22] LABS: Hematocrit 47.8 % (40-54); Hemoglobin 16.5 g/dL (13.0-16.5); Mean Corp Hgb Conc 34.5 g/dL (32-36); Mean Corpuscular Hgb 29.8 pg (27.0-32.0); Mean Corpuscular Volume 86.4 fL (80-94); Mean Platelet Vol. 10.4 fl (6.2-12.0); Platelet Count 270 K/mm3 (150-450); RBC Distribution Width CV 12.9 % (11.6-14.6); RBC Distribution Width SD 40.4 fl (35.1-43.9); Red Blood Count 5.53 M/mm3 (4.6-6.2); White Blood Count 7.3 K/mm3 (4.4-11.0)
== END 2023-11-21 14:08 | disposition home or self-care (01) ==
LOC: MEDOUTP 14:08
PROVIDERS: PCP Family Medicine; Referring Provider Internal Medicine Gastroenterology; Visit Provider Internal Medicine Gastroenterology
DX: E83.119 Hemochromatosis, unspecified (principal)
CPT/HCPCS: 82728; 83540; 85027; 99195

== ENCOUNTER 2024-02-23 14:57 | Outpatient (CLI) | payer OTHER, SELFPAY ==
[2024-02-23 15:23] VITALS: BP 110/77; PULSE 82; RESP 16; TEMP 36.4; O2SAT 100
[2024-02-23 15:43] VITALS: BP 109/73; PULSE 80; RESP 16; TEMP 36.6; O2SAT 99
== END 2024-02-23 14:58 | disposition home or self-care (01) ==
LOC: MEDOUTP 14:57
PROVIDERS: PCP Family Medicine; Referring Provider Internal Medicine Gastroenterology; Visit Provider Internal Medicine Gastroenterology
DX: E83.119 Hemochromatosis, unspecified (principal)
CPT/HCPCS: 99195

== ENCOUNTER 2024-05-30 15:30 | Outpatient (CLI) | payer OTHER, SELFPAY ==
[2024-05-30 15:43] VITALS: BP 128/81; PULSE 81; RESP 16; TEMP 35.8; O2SAT 98; BMI 31.9
[2024-05-30 15:57] VITALS: BP 125/80; PULSE 92; RESP 16; TEMP 35.8; O2SAT 95
[2024-05-30 16:12] LABS: Hematocrit 49.3 % (40-54); Hemoglobin 17.2 g/dL (13.0-16.5); Mean Corp Hgb Conc 34.9 g/dL (32-36); Mean Corpuscular Hgb 30.9 pg (27.0-32.0); Mean Corpuscular Volume 88.5 fL (80-94); Mean Platelet Vol. 10.1 fl (6.2-12.0); Platelet Count 272 K/mm3 (150-450); RBC Distribution Width CV 12.5 % (11.6-14.6); RBC Distribution Width SD 40.9 fl (35.1-43.9); Red Blood Count 5.57 M/mm3 (4.6-6.2); White Blood Count 10.9 K/mm3 (4.4-11.0)
[2024-05-30 16:31] LABS: Ferritin 34 ng/mL (26-388); Iron 248 ug/dL (65-175)
== END 2024-05-30 23:59 | disposition home or self-care (01) ==
LOC: MEDOUTP 15:30
PROVIDERS: PCP Family Medicine; Referring Provider Internal Medicine Gastroenterology; Visit Provider Internal Medicine Gastroenterology
DX: E83.119 Hemochromatosis, unspecified (principal)
CPT/HCPCS: 82728; 83540; 85027; 99195

== ENCOUNTER 2024-07-02 15:29 | Outpatient (CLI) | payer OTHER, SELFPAY ==
[2024-07-02 15:43] VITALS: BP 128/90; PULSE 87; RESP 14; TEMP 36.4; O2SAT 94; BMI 32.6
[2024-07-02 15:53] VITALS: BP 133/97; PULSE 85; RESP 16; TEMP 36.3; O2SAT 92
== END 2024-07-02 23:59 | disposition home or self-care (01) ==
LOC: MEDOUTP 15:29
PROVIDERS: PCP Family Medicine; Referring Provider Internal Medicine Gastroenterology; Visit Provider Internal Medicine Gastroenterology
DX: E83.119 Hemochromatosis, unspecified (principal)
CPT/HCPCS: 99195

== ENCOUNTER 2024-07-30 15:22 | Outpatient (CLI) | payer OTHER, SELFPAY ==
[2024-07-30 15:31] VITALS: BP 130/88; PULSE 75; RESP 16; TEMP 35.8; O2SAT 98; BMI 31.9
[2024-07-30 15:50] LABS: Hematocrit 47.2 % (40-54); Hemoglobin 16.5 g/dL (13.0-16.5); Mean Corpuscular Hgb 31.1 pg (27.0-32.0); Mean Corpuscular Volume 88.9 fL (80-94); Mean Platelet Vol. 10.1 fl (6.2-12.0); Platelet Count 267 K/mm3 (150-450); RBC Distribution Width CV 12.4 % (11.6-14.6); RBC Distribution Width SD 40.8 fl (35.1-43.9); Red Blood Count 5.31 M/mm3 (4.6-6.2); White Blood Count 8.7 K/mm3 (4.4-11.0)
[2024-07-30 16:06] LABS: Ferritin 18 ng/mL (26-388); Iron 55 ug/dL (65-175)
== END 2024-07-30 23:59 | disposition home or self-care (01) ==
LOC: MEDOUTP 15:22
PROVIDERS: PCP Family Medicine; Referring Provider Internal Medicine Gastroenterology; Visit Provider Internal Medicine Gastroenterology
DX: E83.119 Hemochromatosis, unspecified (principal)
CPT/HCPCS: 82728; 83540; 85027; 99195

== ENCOUNTER 2024-10-15 13:08 | Outpatient (CLI) | payer OTHER, SELFPAY ==
[2024-10-15 13:37] VITALS: BP 133/94; PULSE 80; RESP 16; TEMP 35.6; O2SAT 98; BMI 32.6
[2024-10-15 13:58] VITALS: BP 115/89; PULSE 84; RESP 16; TEMP 35.7; O2SAT 97
== END 2024-10-15 23:59 | disposition home or self-care (01) ==
LOC: MEDOUTP 13:08
PROVIDERS: PCP Family Medicine; Referring Provider Internal Medicine Gastroenterology; Visit Provider Internal Medicine Gastroenterology
DX: E83.119 Hemochromatosis, unspecified (principal)
CPT/HCPCS: 99195

== ENCOUNTER 2024-11-08 15:19 | Outpatient (CLI) | payer OTHER, SELFPAY ==
[2024-11-08 15:31] VITALS: BP 136/86; PULSE 95; RESP 16; TEMP 36.2; O2SAT 96; BMI 32.6
[2024-11-08 15:39] VITALS: BP 134/95; PULSE 99; RESP 14; O2SAT 96
== END 2024-11-08 23:59 | disposition home or self-care (01) ==
LOC: MEDOUTP 15:20
PROVIDERS: PCP Family Medicine; Referring Provider Internal Medicine Gastroenterology; Visit Provider Internal Medicine Gastroenterology
DX: E83.119 Hemochromatosis, unspecified (principal)
CPT/HCPCS: 99195

== ENCOUNTER 2024-12-13 15:19 | Outpatient (CLI) | payer OTHER, SELFPAY ==
[2024-12-13 15:28] VITALS: BP 146/76; PULSE 93; RESP 16; TEMP 35.9; O2SAT 99
[2024-12-13 15:42] VITALS: BP 129/83; PULSE 101; RESP 16
== END 2024-12-13 23:59 | disposition home or self-care (01) ==
LOC: MEDOUTP 15:20
PROVIDERS: PCP Family Medicine; Referring Provider Internal Medicine Gastroenterology; Visit Provider Internal Medicine Gastroenterology
DX: E83.119 Hemochromatosis, unspecified (principal)
CPT/HCPCS: 99195

== ENCOUNTER 2025-02-13 15:40 | Outpatient (CLI) | payer OTHER, SELFPAY ==
[2025-02-13 15:48] VITALS: BP 151/97; PULSE 92; RESP 16; TEMP 36.1; O2SAT 97; BMI 33.0
[2025-02-13 16:01] VITALS: BP 146/90; PULSE 100; RESP 16; TEMP 36.2; O2SAT 94
== END 2025-02-13 23:59 | disposition home or self-care (01) ==
LOC: MEDOUTP 15:40
PROVIDERS: PCP Family Medicine; Referring Provider Internal Medicine Gastroenterology; Visit Provider Internal Medicine Gastroenterology
DX: E83.119 Hemochromatosis, unspecified (principal)
CPT/HCPCS: 99195